=== PATIENT | male | born 1950 | race Caucasian/White ===

== ENCOUNTER 2023-05-14 10:02 | Emergency (ER) | payer MEDICARE, SELFPAY ==
[2023-05-14 10:00] VITALS: BP 170/80; PULSE 88; RESP 16; TEMP 36.7; O2SAT 98
--- NOTE | 2023-05-14 10:17 | ECG_ITS ---
Measurements Intervals D Hanis Rate: 86 P: 33 WA: 184 QRS: 23 QRSD: 96 T: 49 QT: 366 QTc: 438 Interpretive Statements SINUS RHYTHM NO PREVIOUS ECG AVAILABLE FOR COMPARISON Electronically Signed On 05-14-2023 11:28:27 HEARING EXAMINER by Kalani Basilio M.D.
[2023-05-14 10:40] LABS: Basophils Absolute Auto 0.1 K/mm3 (0.0-0.1); Basophils Percent Auto 0.7 % (0.2-1.2); Eosinophils Absolute Auto 0.1 K/mm3 (0-0.3); Eosinophils Percent Auto 0.8 % (0-4.4); Hematocrit 37.3 % (42.0-52.0); Hemoglobin 12.2 g/dL (14.0-18.0); Immature Granulocyte Absolute 0.02 K/mm3 (0.00-0.031); Immature Granulocyte Percent A 0.3 % (0-0.5); Lymphocytes Absolute Auto 1.36 K/mm3 (0.9-3.2); Lymphocytes Percent Auto 18.3 % (18.3-44.2); Mean Corpuscular HGB Conc 32.7 g/dl (32-36); Mean Corpuscular Hemoglobin 31.4 pg (26-34); Mean Corpuscular Volume 96.1 fl (80-100); Monocytes Absolute Auto 0.5 K/mm3 (0.1-0.6); Monocytes Percent Auto 6.8 % (2.6-8.5); Neutrophils Absolute Auto 5.5 K/mm3 (1.3-6.7); Neutrophils Percent Auto 73.1 % (45.5-73.1); Platelet Count Result 234 k/mm3 (150-375); Red Blood Count 3.88 M/mm3 (4.6-6.20); Red Cell Distribution Width 12.3 % (11.5-14.5); White Blood Count 7.5 K/mm3 (4.5-10.0)
[2023-05-14 10:42] LABS: Appearance Urine Clear (Clear); Bilirubin Urine Negative (Negative); Blood Urine Negative (Negative); Color Urine Yellow (Yellow); Glucose Urine UA Negative (Negative); Ketones Urine Negative (Negative); Leukocyte Esterase Ur Negative LEU/UL (Negative); Nitrate Urine Negative (Negative); Protein Urine Negative (Negative); Specific Grav Ur 1.003 (1.001-1.035); Urobilinogen Urine 0.2 mg/dL (<2.0)
[2023-05-14 10:49] LABS: Acetaminophen < 10 ug/mL (10-30); Alanine Aminotransferase 19 U/L (6-50); Albumin Level 4.1 g/dL (3.5-5.1); Alkaline Phosphatase 65 U/L (38-126); Anion Gap 7 mmol/L (8-16); Aspartate Amino Transferase 29 U/L (17-59); Bilirubin,Total 0.3 mg/dL (0.2-1.3); Blood Urea Nitrogen 10 mg/dL (9-20); Calcium 9.4 mg/dL (8.4-10.2); Carbon Dioxide 26 mmol/L (22-30); Chloride 95 mmol/L (98-107); Estimated CRCL calculation 67 ml/min; Estimated Glomerular Filt Rate > 60; Ethanol < 10 mg/dL (<10); Glucose 111 mg/dL (65-110); Potassium 4.1 mmol/L (3.4-5.0); Salicylate < 1.0 mg/dL (2-20); Sodium 128 mmol/L (137-145)
[2023-05-14 10:56] LABS: Amphetamine Screen Urine Negative (Negative); Barbiturate Screen Urine Negative (Negative); Benzodiazepines Screen Urine Negative (Negative); Cannabinoid Screen Urine Negative (Negative); Cocaine Screen Urine Negative (Negative); Methadone Screen Urine Negative (Negative); Opiate Screen Urine Negative (Negative); Phencyclidine Screen Urine Negative (Negative)
[2023-05-14 10:58] LABS: Add Urine Microscopic? NO
[2023-05-14 11:18] LABS: Influenza A QL RT-PCR Negative (Negative); Influenza B QL RT-PCR Negative (Negative); RSV RNA, RT-PCR Negative (Negative); SARS-CoV-2 RNA PCR Negative (Negative)
[2023-05-14 11:20] LABS: Thyroid Stimulating Hormone 0.767 uIU/mL (0.465-4.680)
--- NOTE | 2023-05-14 12:59 | ED.PSYCH ---
HPI - Psych General Chief Complaint: Psychiatric Symptoms Stated Complaint: HOMICIDAL THREATS Time Seen by Provider: 05/14/23 12:06 Source: patient Limitations: no limitations History of Present Illness HPI Narrative: Patient is a 72-year-old male presents to the emergency department for a petition for psychiatric evaluation by patient's the a caseworker. Patient was reportedly making and direct threats regarding his brother that bad things could have been his brother was to remain with him however did not have any plan. Patient denies current complaints or concerns. Patient states he feels well the patient is getting long-acting injectable antipsychotic medications with a history of schizophrenia and no recent changes to his medications. Patient denies any alcohol, tobacco, illicit drug use. Patient denies any auditory or visual hallucinations or tactile hallucinations. Patient denies urinary discomfort, diarrhea, vomiting, rash, chest pain, difficulty breathing, abdominal pain, recent injuries, recent illness, fever, cough, sore throat, nasal congestion, headache, confusion. Patient denies any suicidal ideations or homicidal ideations. Patient states he might have felt depressed a couple hours earlier but feels well now. Related Data Home Medications Medication Instructions Recorded Confirmed haloperidol decanoate 100 mg/mL 100 mg IM MONTHLY 05/14/23 05/14/23 intramuscular solution (Haldol Decanoate) paliperidone palmitate 234 mg/1.5 234 mg IM Q30D 05/14/23 05/14/23 mL intramuscular syringe (Invega Sustenna) sertraline 50 mg tablet 50 mg PO DAILY 05/14/23 05/14/23 Allergies Allergy/AdvReac Type Severity Reaction Status Date / Time No Known Allergies Allergy Verified 05/14/23 10:58 Review of Systems Review of Systems: A 10 system review of systems was completed on the patient and is negative except for what is stated in the HPI. Nursing and ancillary documentation was reviewed. PMFSH Social History Social History Substance use type: does not use Comments At time of signature, I have reviewed and agree with nursing past medical, surgical, social and family history unless otherwise noted. Please see the nursing chart for further information. There is no relevant family history pertinent to the presenting complaint. Exam Narrative: CONST: No acute distress. Well nourished. HENMT: Head is normocephalic and atraumatic. Moist mucous membranes. No posterior oropharynx erythema. EYES: No conjunctival icterus, injection, or pallor. PERRL. NECK: No meningeal signs. RESP: Able to speak in full sentences. Normal respiratory effort. CTAB. CARDIO: Regular rate. Regular rhythm. 2+ DP and radial pulses bilaterally. GI: Nondistended. No tenderness to palpation. Soft. : No CVA tenderness to palpation. SKIN: No rashes or lesions noted on exposed skin. NEURO: Oriented x3. Moves all extremities. EXTREM/MSK/BACK: No pedal edema. PSYCH: Normal affect. Course Vital Signs Vital signs: Vital Signs Temperature 98.1 F 05/14/23 10:00 Pulse Rate 88 05/14/23 10:00 Respiratory Rate 16 05/14/23 10:00 Blood Pressure 170/80 H 05/14/23 10:00 Pulse Oximetry 98 05/14/23 10:00 Temperature 98.1 F 05/14/23 10:00 Pulse Rate 88 05/14/23 10:00 Respiratory Rate 16 05/14/23 10:00 Blood Pressure 170/80 H 05/14/23 10:00 Pulse Oximetry 98 05/14/23 10:00 MDM - Psych MDM Narrative Medical decision making narrative: Patient presents with the above complaint. Initial vitals are remarkable for no significant abnormalities. Physical examination as noted above. Plan discussed: Laboratory analysis, EKG, behavior health evaluation. Patient medically cleared for behavioral health evaluation. behavioral Health has evaluated the patient and we discussed our findings together, we both agree that the patient is a good candidate for discharge with a safety plan, the
--- NOTE | 2023-05-14 15:50 | PC.NURSE ---
PT WAS TO BE DISCHARGED BUT WAS NOTED BY STAFF MEMBER TO GET DRESSED AND WALK OUT EMS BAY WITHOUT HIS INSTRUCTIONS. CAMERA REVIEW INITIATED BY SECURITY TO CONFIRM CLOTHING DESCRIPTION PT WAS WEARING PRIOR TO CALLING [facility]
--- NOTE | 2023-05-14 16:00 | PC.NURSE ---
[facility] NOTIFIED THAT PT WAS WEARING [employer]AMPION FLANNEL JACKET, DARK BROWN SHIRT, JEANS AND BROWN LOAFERS AND HE WALKED OUT OF THE EMS BAY. SECURITY IS CHECKING OUT IN THE PARKING LOT AND [facility] WILL BE LOOKING FOR PT.
== END 2023-05-14 15:50 | disposition home or self-care (01) ==
PROVIDERS: Emergency Medicine; Emergency Provider Student in an Organized Health Care Education/Training Program
DX: F20.9 Schizophrenia, unspecified (principal); F43.0 Acute stress reaction; Z11.52 Encounter for screening for COVID-19; Z79.899 Other long term (current) drug therapy
CPT/HCPCS: 36415; 80053; 80307; 81003; 84443; 85025; 87637; 93005; 99284